=== PATIENT | female | born 1960 | race Caucasian/White ===

== ENCOUNTER 2022-09-19 02:33 | Emergency (ER) | payer SELFPAY ==
[~2022-09-19] VITALS: Ht 165.1 cm; Wt 68.5 kg
--- NOTE | 2022-09-19 02:44 | NUR ---
PT TAKEN TO BED 3
[2022-09-19 02:45] VITALS: BP 118/80
--- NOTE | 2022-09-19 02:55 | NUR ---
Dr. Perez examining patient.
--- NOTE | 2022-09-19 02:57 | NUR ---
Patient is A/Ox4, chest rise and fall symmetrical, no s/s of distress, on monitor.
[2022-09-19] MEDS ORDERED: LORazepam 0.5 MG TAB PO ONE (03:00)
--- NOTE | 2022-09-19 03:16 | NUR ---
Patient states that patient insurance clerk "asked for insurance," and she "feels better now and wants to leave." Spoke with patient and patient's nephew and he convinced patient to stay. Patient wants to stay in the lobby with nephew. Patient is A/Ox4, chest rise and fall symmetrical, no s/s of distress.
[2022-09-19 03:56] LABS: BASOPHILS # (AUTO) 0.1 K/uL (0.00-0.22); EOSINOPHILS # (AUTO) 0.1 K/uL (0-0.4); EOSINOPHILS % (AUTO) 1.3 % (0.0-4.0); HEMATOCRIT 38.7 % (36-48); HEMOGLOBIN 13.7 g/dL (12.0-16.0); LYMPHOCYTES # (AUTO) 1.4 K/uL (2.5-16.5); LYMPHOCYTES % (AUTO) 25.1 % (20.5-51.1); MEAN CORPUSCULAR HEMOGLOBIN 30 pg (27-31); MEAN CORPUSCULAR HGB CONC 36 g/dL (33-37); MONOCYTES # (AUTO) 0.2 K/uL (0.8-1.0); MONOCYTES % (AUTO) 4.4 % (1.7-9.3); NEUTROPHILS # (AUTO) 3.8 K/uL (1.8-7.7); NEUTROPHILS % (AUTO) 68.2 % (42.2-75.2); PLATELET COUNT (AUTO) 322 K/uL (140-450); RED BLOOD CELL COUNT(AUTO) 4.55 MIL/uL (4.20-5.40); RED CELL DISTRIBUTION WIDTH 13.3 % (11.6-13.7); WHITE BLOOD COUNT (AUTO) 5.5 K/uL (4.8-10.8)
[2022-09-19 04:16] LABS: ANION GAP 15.3 (8-16); CARBON DIOXIDE 25.4 mmol/L (21-32); CREATININE 0.7 mg/dL (0.6-1.3); POTASSIUM 3.7 mmol/L (3.5-5.1)
--- NOTE | 2022-09-19 04:18 | NUR ---
ATTEMPTED TO CALL PT FOR RAD WITH NO SUCCESS.
--- NOTE | 2022-09-19 04:19 | NUR ---
ATTEMPTED TO CALL PT WITH NUMBER PROVIDED WITH NO SUCCESS.
--- NOTE | 2022-09-19 04:20 | NUR ---
[facility]. KATHLEEN FRAZIER.
--- NOTE | 2022-09-19 04:24 | NUR ---
PT CAME OUT OF CAR.
--- NOTE | 2022-09-19 04:26 | NUR ---
X-Ray at bedside.
--- NOTE | 2022-09-19 05:38 | NUR ---
Attempted to check patient's blood pressure. Patient eloped with patient's nephew.
--- NOTE | 2022-09-19 05:39 | NUR ---
PATIENT ELOPED FROM FACILITY. DISCHARGE INSTRUCTIONS NOT GIVEN TO PATIENT. DR. JO NOTIFIED. DR. JO VERBALIZED UNDERSTANDING, NO NEW ORDERS.
[2022-09-19 05:40] VITALS: BP 122/78
== END 2022-09-19 05:39 | disposition left against medical advice (07) ==
LOC: MED 02:33
DX: R07.89 Other chest pain (principal)
CPT/HCPCS: 36415; 71045; 80048; 84484; 85025; 99283; Q0092